=== PATIENT | female | born 1950 | race African-American/Black ===

== ENCOUNTER 2019-03-30 17:32 | Emergency (ER) | payer OTHER, MEDICARE ==
[~2019-03-30] VITALS: Ht 160 cm; Wt 86.2 kg
[2019-03-30 17:41] VITALS: BP_SYST 143
[2019-03-30 18:58] LABS: HEMATOCRIT 40.4 % (36-48); HEMOGLOBIN 12.6 g/dL (12.0-16.0); MEAN CORPUSCULAR HEMOGLOBIN 23 pg (27-31); MEAN CORPUSCULAR HGB CONC 31 % (32-36); MEAN CORPUSCULAR VOLUME 73 fL (79.0-98.0); PLATELET COUNT (AUTO) 201 K/uL (130-430); RED BLOOD CELL COUNT(AUTO) 5.54 MIL/uL (4.2-6.2); RED CELL DISTRIBUTION WIDTH 16.1 % (9.0-15.0); WHITE BLOOD COUNT (AUTO) 2.5 K/uL (4.8-10.8)
[2019-03-30 19:05] LABS: CALCIUM 9.6 mg/dL (8.4-11.0); CREATININE 1.25 mg/dL (0.55-1.30); POTASSIUM 4.2 mmol/L (3.5-5.1)
[2019-03-30 19:10] LABS: ALBUMIN 3.2 g/dL (3.4-4.8); TOTAL BILIRUBIN 0.4 mg/dL (0.0-1.0)
--- NOTE | 2019-03-30 19:15 | NUR ---
Placed in room 1 . Placed on mountain or glacier guide, blood pressure machine and pulse oximeter. To gown for exam. Side rails up. Report given to JLUIS MATT.
--- NOTE | 2019-03-30 19:20 | NUR ---
1920 - Assumed care of pt. Pt states today around lunch time she was at a restaurant, exiting the restroom and she slipped on wet floor, directly onto bottom and right elbow. Pt denies hitting head. Pt states she had mild chest pain and was concerned d/t recent bilat lung transplant 6 months ago. Pt is sitting up in bed, no distress, resp even and unlabored, speaking in full/clear sentences, pt states pain is 9/10, described as a "hard ache", located in the low back/tailbone area. A&OX4. Pt wearing mask.
--- NOTE | 2019-03-30 19:26 | NUR ---
ER at bedside examining patient.
[2019-03-30 19:33] LABS: PROTHROMBIN TIME 9.9 SECS (9.5-12.5)
[2019-03-30] MEDS ORDERED: MORPHINE SULFATE 10 MG/ML VIAL IM ONE (19:45)
[2019-03-30 20:12] LABS: BAND % (MANUAL) 19 % (0-6); BASOPHILS % (MANUAL) 0 % (0-2); EOSINOPHILS % (MANUAL) 0 % (0-7); LYMPHOCYTES % (MANUAL) 25 % (20-46); MONOCYTES % (MANUAL) 8 % (0-11)
[2019-03-30 20:13] VITALS: BP_SYST 143
--- NOTE | 2019-03-30 20:13 | NUR ---
2012 - Patient given written and verbal discharge instructions and verbalizes understanding. ER MD discussed with patient the results and treatment provided. Patient in stable condition. ID arm band removed. Rx of norco given. Patient educated on pain management and to follow up with PMD. Pain Scale 7. Opportunity for questions provided and answered. Medication side effect fact sheet provided.
== END 2019-03-30 20:13 | disposition home or self-care (01) ==
LOC: SED 17:32
DX: S30.0XXA Contusion of lower back and pelvis, initial encounter (principal); R07.89 Other chest pain; R03.0 Elevated blood-pressure reading, without diagnosis of hypertension; W18.09XA Striking against other object with subsequent fall, initial encounter; Y93.89 Activity, other specified; Y92.511 Restaurant or cafe as the place of occurrence of the external cause; Y99.8 Other external cause status
CPT/HCPCS: 36415; 71045; 72192; 80053; 84484; 85007; 85027; 85610; 85730; 93005; 96372; 99284; J2270